=== PATIENT | female | born 1965 | race African-American/Black ===

== ENCOUNTER 2019-02-11 18:09 | Emergency (ER) | payer MEDICARE, MEDICAID ==
[~2019-02-11] VITALS: Ht 149.9 cm; Wt 72.6 kg
[~2019-02-11 18:09] MED LIST: METFORMIN HCL500 M1 ORAL
[2019-02-11] MEDS ORDERED: Tetanus/Diptheria/Pertussis IM ONE (18:15)
--- NOTE | 2019-02-11 18:20 | Emergency Room Report ---
History of Present Illness General Chief Complaint: Syncope Source: EMS Present Illness HPI Disclaimer: Please note that this report is being documented using DRAGON technology. This can lead to erroneous entry secondary to incorrect interpretation by the dictating instrument. HPI: 53-year-old female with a history of stroke with residual right-sided weakness, diabetes presents for evaluation of alcohol intoxication with a head injury. The patient admits to drinking throughout the day today as well as smoking marijuana. She had a fall from a seated position landing on the back of her head causing a laceration. Bleeding was controlled at home. She was brought in for evaluation at the request of her family and comes in by EMS. She admits to intoxication and currently has no complaints. She states she has some pain in the back of the head but denies any blurred vision, vomiting, nausea. Fingerstick for EMS was 81. PMH: Stroke with residual right-sided weakness, diabetes PSH: Unspecified head surgery Allergies: None listed Social Hx: Reports regular alcohol use, THC use, tobacco use Allergies: Coded Allergies: No Known Allergies (Unverified , 02/11/19) Patient History Last Menstrual Period: na Nursing Documentation-PMH Past Medical History: No History, Except For Hx Hypertension: Yes Hx Asthma: Yes Hx Diabetes: Yes Hx Cerebrovascular Accident: Yes Review of Systems All Other Systems: negative except mentioned in HPI Physical Exam Vital Signs Date Time Temp Pulse Resp B/P (MAP) Pulse Ox O2 Delivery O2 Flow Rate FiO2 02/11/19 18:04 98.2 80 20 131/77 (95) 99 Room Air General: Awake and alert, no acute distress HEENT: Normocephalic. Coagulated blood over the occiput but cannot find the laceration. There are no face hematomas, lacerations or abrasions. No tenderness or soft tissue swelling over the facial bones. EOMI. PERRLA. No septal hematoma. No oral lacerations. Dentition is intact. No malocclusion Neck: Supple, trachea midline. Arrives without cervical collar Chest Wall: No tenderness, no deformity, no crepitus CV: RRR. S1 and S2 normal. No murmur appreciated Resp: Normal work of breathing. No cough, wheezing or crackles appreciated Abd: Soft, nontender, nondistended Skin: Intact. No abrasions, laceration or rash over the exposed skin MSK: Normal tone and bulk. No obvious deformity. Moving all extremities. Right -sided weakness with brace on the right lower extremity and almost no movement in the right upper extremity. Neuro: Awake and alert. Answering questions appropriately. Appears intoxicated. Spine: There is no tenderness, step-off or deformity in the cervical, thoracic or lumbosacral spine. Procedures Laceration/Wound Repair Laceration/Wound Repair : Consent: Verbal Wound Location: head Wound's Depth, Shape: superficial, linear Wound Length (cm): 4 Wound Explored: clean Betadine Prep?: No - peroxide Wound Debrided: None Wound Repaired With: kika Number of Sutures: 4 Layer Closure?: No Patient Tolerated: Well Complications: None Medical Decision Making Diagnostic Impression: Primary Impression: Head injury Additional Impressions: Scalp laceration Alcohol intoxication ER Course 53-year-old female presents for evaluation of syncopal episode with fall and head injury. Patient admits to heavy alcohol use today and regularly in general. Fingerstick for EMS was 81. Will obtain a CT scan of the head, update tetanus and fix the laceration after a thorough washout. She is otherwise well-appearing with stable vital signs and has no other complaints. Laboratory Tests Test 02/11/19 20:12 02/11/19 20:50 White Blood Count 5.6 K/UL (4.8-10.8) Red Blood Count 4.60 M/UL (4.20-5.40) Hemoglobin 14.0 G/DL (12.0-16.0) Hematocrit 43.4 % (37.0-47.0) Mean Corpuscular Volume 94 FL (80-99) Mean Corpuscular Hemoglobin 30.4 PG (27.0-31.0) Mean Corpuscular Hemoglobin Concent 32.2 G/DL (32.0-36.0) Red Cell Distribution Width 13.4 % (11.6-14.8) Platelet Count 329 K/UL (150-450) Mean Platelet Volume 6.0 FL (6.5-10.1) L Neutrophils (%) (Auto) 46.8 % (45.0-75.0) Lymphocytes (%) (Auto) 43.2 % (20.0-45.0) Monocytes (%) (Auto) 7.1 % (1.0-10.0) Eosinophils (%) (Auto) 1.7 % (0.0-3.0) Basophils (%) (Auto) 1.3 % (0.0-2.0) Prothrombin Time 10.0 SEC (9.30-11.50) Prothrombin Time INR 0.9 (0.9-1.1) PTT 26 SEC (23-33) Sodium Level 139 MMOL/L (136-145) Potassium Level 3.9 MMOL/L (3.5-5.1) Chloride Level 107 MMOL/L (98-107) Carbon Dioxide Level 21 MMOL/L (21-32) Anion Gap 11 mmol/L (5-15) Blood Urea Nitrogen 6 mg/dL (7-18) L Creatinine 0.8 MG/DL (0.55-1.30) Estimate Glomerular Filtration Rate > 60 mL/min (>60) Glucose Level 89 MG/DL (74-106) Calcium Level 9.1 MG/DL (8.5-10.1) Total Bilirubin 1.0 MG/DL (0.2-1.0) Aspartate Amino Transferase (AST) 46 U/L (15-37) H Alanine Aminotransferase (ALT) 37 U/L (12-78) Alkaline Phosphatase 63 U/L (46-116) Total Protein 7.8 G/DL (6.4-8.2) Albumin 4.0 G/DL (3.4-5.0) Globulin 3.8 g/dL Albumin/Globulin Ratio 1.1 (1.0-2.7) Salicylates Level 4.1 ug/mL (2.8-20) Acetaminophen Level < 2 MCG/ML (10-30) L Serum Alcohol 214 mg/dL Urine Opiates Screen Negative (NEGATIVE) Urine Barbiturates Screen Negative (NEGATIVE) Phencyclidine (PCP) Screen Negative (NEGATIVE) Urine Amphetamines Screen Negative (NEGATIVE) Urine Benzodiazepines Screen Negative (NEGATIVE) Urine Cocaine Screen Negative (NEGATIVE) Urine Marijuana (THC) Screen Negative (NEGATIVE) CT/MRI/US Diagnostic Results CT/MRI/US Diagnostic Results : Impression Preliminary Findings Only See Final Report For Complete Findings CT HEAD Without Contrast: Mild heterogeneity in the region of the left thalamus is nonspecific. Question age-indeterminate infarct versus small amount of hemorrhage. Further evaluation could be performed with MRI if clinically indicated. Prominent right posterior parietal scalp hematoma. No acute fracture. Mild mucosal thickening partially visualized in the left maxillary sinus. Atherosclerotic calcifications in the intracranial vasculature. Radiologist: Yaritza Louis M.D. Preliminary Findings Only See Final Report For Complete Findings CT C SPINE: No acute traumatic abnormality identified. Straightening of the normal cervical lordosis. Atherosclerotic changes of the vasculature. Mild paraseptal emphysematous changes at the lung apices. Small scattered lymph nodes are likely reactive Radiologist: Yaritza Louis M.D. Preliminary Findings Only See Final Report For Complete Findings MRI HEAD Without Contrast: No acute infarct, hemorrhage, or hydrocephalus. Right parietal scalp soft tissue swelling. There is old hemorrhage in the left thalamus, likely from prior infarct. Old right shunt catheter tract in the right frontal lobe. Old infarct in the left cerebellum. Punctate chronic microhemorrhage in the right basal ganglia, possibly related to hypertension. Reevaluation Time: 22:54 Last Vital Signs Date Time Temp Pulse Resp B/P (MAP) Pulse Ox O2 Delivery O2 Flow Rate FiO2 02/11/19 18:04 98.2 80 20 131/77 (95) 99 Room Air Status: improved Reevaluation Impression CT head was concerning for possible hemorrhage in the putamen on the left side versus subacute stroke. The patient's history would point to subacute stroke however given her level of intoxication and her head injury hemorrhage had to be ruled out with MRI. This is now been performed and shows an old hemorrhage in the area of the old stroke but no acute findings. Labs have returned within normal limits. Patient did have an elevated alcohol level of 214 however she has been in the emergency department nearly 5 hours and is metabolized. 4 cm scalp laceration was closed with 4 kika which will be removed in 10 to 14 days. She can return to the emergency department or with her PMD to remove the kika. She is clinically sober and stable for outpatient follow-up. Disposition: HOME, SELF-CARE Condition: Stable Marco Antonio Solis MD Feb 11, 2019 18:20
[2019-02-11 18:38] VITALS: BP 131/77
--- NOTE | 2019-02-11 18:51 | NUR ---
ED Nurse Note:pt. was BIBA from home s/p fall and head injury at the back of her head still bleeding, pt. admited to drinking alcohol today, hx of stroke with right sided weakness, she had CT scan head done
[2019-02-11 19:05] VITALS: BP 145/79
--- NOTE | 2019-02-11 19:05 | NUR ---
ED Nurse Note: pt is in bed on the phone, speaking loudly. pt is calm and cooperative. assisted pt on bed gutierrez to urinate. head laceration has been cleaned. will await for further orders.
--- NOTE | 2019-02-11 19:40 | Diagnostic Imaging Report ---
Indication: Headache Technique: Contiguous 5 mm thick transaxial imaging of the head obtained in a Siemens Sensation [address] scanner. Soft tissue and bone windows generated. Automatic Exposure Control was utilized. Total Dose length Product (DLP): [address] Dose Index Volume (CTDIvol): 62.7 mGy Comparison: none Findings: There is a low attenuation cystic focus in the left thalamus with the surrounding rim of high attenuation. There is evidence of surrounding volume loss with compensatory dilatation of part of the left lateral ventricle which is notably asymmetric large in this location compared to the contralateral right lateral ventricle. The finding suggests an old infarct, most likely an old bleed. Evaluation with MRI may be of benefit as well as correlation with clinical history and comparison with previous studies if possible. There is a focus of the encephalomalacia in the left cerebellum. This measures no more than 2 cm. Mild atrophy of the brain is present. There is scattered white matter low-attenuation likely due to chronic small vessel disease. Basal cisterns appear normal. The ventricles are otherwise normal. IMPRESSION: Suspected old left thalamic bleed with encephalomalacia. MRI suggested for confirmation. No definite mass effect or edema. Small old left cerebellar infarct Chronic small vessel disease. Mild atrophy. The CT scanner at [facility] is accredited by the [employer] and the scans are performed using dose optimization techniques as appropriate to a performed exam including Automatic Exposure control.
--- NOTE | 2019-02-11 19:43 | Diagnostic Imaging Report ---
Indication: Cervical trauma/pain. Technique: Continuous helical imaging of the cervical spine was obtained transaxially from the skull base to the upper thoracic spine. 2-D coronal and sagittal reformatted images were obtained. Automatic Exposure Control was utilized. Total Dose length Product (DLP): [address] Dose Index Volume (CTDIvol): 32 mGy Comparison: None Findings: There is no acute fracture or malalignment identified. There is no soft tissue swelling identified. Loss of cervical lordosis may be due to muscle spasm. Mild uncovertebral arthritis is demonstrated at multiple levels. Some of the intervertebral discs show mild narrowing. Carotid calcifications are present. Impression: No acute injury Mild spondylosis [facility] has communicated the preliminary results to the Emergency Department. Their findings are largely concordant with this report. The CT scanner at [facility] is accredited by the [employer] and the scans are performed using dose optimization techniques as appropriate to a performed exam including Automatic Exposure control.
--- NOTE | 2019-02-11 20:06 | NUR ---
ED Nurse Note: reassessed pt mental status, aox4, assisted pt on bed gutierrez
[2019-02-11 20:21] LABS: BASOPHILS % (AUTO) 1.3 % (0.0-2.0); EOSINOPHILS % (AUTO) 1.7 % (0.0-3.0); HEMATOCRIT 43.4 % (37.0-47.0); LYMPHOCYTES % (AUTO) 43.2 % (20.0-45.0); MEAN CORPUSCULAR VOLUME 94 FL (80-99); MONOCYTES % (AUTO) 7.1 % (1.0-10.0); NEUTROPHILS % (AUTO) 46.8 % (45.0-75.0); PLATELET COUNT 329 K/UL (150-450); RED CELL DISTRIBUTION WIDTH 13.4 % (11.6-14.8); WHITE BLOOD COUNT 5.6 K/UL (4.8-10.8)
--- NOTE | 2019-02-11 20:28 | NUR ---
ED Nurse Note: called pharmacy about pt medication. per er tech they are mixing the medication and it will be ready in 15-20 minutes. will continue to monitor and wait for further orders
[2019-02-11 20:30] LABS: INR 0.9 (0.9-1.1)
[2019-02-11] MEDS ORDERED: Thiamine 100mg tab ORAL ONE (20:30)
[2019-02-11] MEDS ORDERED: Folic Acid 1 MG, Magnesium Sulfate 2,000 MG, Multivitamin - 12 Injection 10 ML, Thiamin... IV ONE ×5 (20:30)
[2019-02-11 20:36] LABS: ANION GAP 11 mmol/L (5-15); BLOOD UREA NITROGEN 6 mg/dL (7-18); CALCIUM 9.1 MG/DL (8.5-10.1); CARBON DIOXIDE 21 MMOL/L (21-32); CHLORIDE 107 MMOL/L (98-107); CREATININE 0.8 MG/DL (0.55-1.30); POTASSIUM 3.9 MMOL/L (3.5-5.1); SODIUM 139 MMOL/L (136-145)
[2019-02-11 20:49] LABS: ALANINE AMINOTRANSFERASE 37 U/L (12-78); ALBUMIN/GLOBULIN RATIO 1.1 (1.0-2.7); ALKALINE PHOSPHATASE 63 U/L (46-116); ASPARTATE AMINO TRANSFERASE 46 U/L (15-37)
[2019-02-11 20:57] VITALS: BP 123/97
--- NOTE | 2019-02-11 21:40 | NUR ---
ED Nurse Note: pt at MRI
--- NOTE | 2019-02-11 22:16 | NUR ---
ED Nurse Note: pt returned from MRI
[2019-02-11] MEDS ORDERED: Hydrogen Peroxide 473ml Bottle TOPIC ONE (23:13)
--- NOTE | 2019-02-11 23:19 | Diagnostic Imaging Report ---
Indication: Abnormal CT. Headache. Question of an old bleed in the left thalamus. Technique: The head was imaged in a 1.5 Stella magnet. Sequences obtained include sagittal and axial T1 FLAIR, axial T2 fast spin echo with fat saturation, axial T2* GRE, axial T2 FLAIR, diffusion and ADC map. Comparison: CT head earlier same day There is a focus of magnetic susceptibility within the left thalamus that is most pronounced on T2*gradient echo compatible with hemosiderin and an old bleed. There is associated encephalomalacia with focal compensatory dilatation of part of the left lateral ventricle. There is subtle, mild asymmetry of the midbrain and horace due to wallerian degeneration on the left. There is a 2 cm focus of encephalomalacia seen is an area of fluid signal in the posterior left cerebellum consistent with an old infarct. The anterior edge of the infarct show some mild T2 hyperintense gliosis. There is an old left medial orbital wall fracture. There is mild atrophy of the brain. There is periventricular T2 hyperintense signal consistent with chronic small vessel disease. Linear signal focus in the right frontal region extending to the right lateral ventricle consistent with an old shunt catheter tract. The corpus callosum is mildly atrophic. There is normal bone marrow signal throughout the visualized osseous structures. Sella is unremarkable. There is no diffusion restriction. IMPRESSION: No mass effect, acute CVA, edema or acute hemorrhage identified. Old left thalamic bleed associated with encephalomalacia and Wallerian degeneration of the left midbrain. Old left cerebellar infarct. Old right frontal shunt catheter tract. Mild generalized atrophy of the brain. Nonspecific periventricular T2 hyperintense signal. This may be due to chronic small vessel disease.
[2019-02-11] MEDS ORDERED: TYLENOL EXTRA500 MG ORAL (23:24)
[2019-02-11 23:55] VITALS: BP 137/88
--- NOTE | 2019-02-11 23:55 | NUR ---
ED Nurse Note: Pt was d/c per ermd order. pt is aox4, with no acute distres. pt was wheeled to taxi. all pt belongings have been given to pt. Iv site discontinued. prescription and discharge instructions were given, pt verbalized understanding.
== END 2019-02-11 23:55 | disposition home or self-care (01) ==
LOC: EDBD 18:09 → EMR 19:30
DX: S01.01XA Laceration without foreign body of scalp, initial encounter (principal); S09.90XA Unspecified injury of head, initial encounter; M54.2 Cervicalgia; F10.129 Alcohol abuse with intoxication, unspecified; Y90.7 Blood alcohol level of 200-239 mg/100 ml; Z23 Encounter for immunization; M47.812 Spondylosis without myelopathy or radiculopathy, cervical region; E11.9 Type 2 diabetes mellitus without complications; I10 Essential (primary) hypertension; J45.909 Unspecified asthma, uncomplicated; I69.851 Hemiplegia and hemiparesis following other cerebrovascular disease affecting right dominant side; F12.10 Cannabis abuse, uncomplicated; W07.XXXA Fall from chair, initial encounter; Y92.9 Unspecified place or not applicable
CPT/HCPCS: 12002; 36415; 70450; 70551; 72125; 80053; 80307; 85025; 85610; 85730; 90471; 90715; 96360; 96361; 99284; G0480; J3475; J3490